=== PATIENT | female | born 1995 | race African-American/Black ===

== ENCOUNTER 2016-10-17 11:10 | Emergency (ER) | payer OTHER ==
[~2016-10-17 11:10] MED LIST: BIOTCAP2 PO; DIPH25CA65 PO; PRLSR20 PO; SULF800T23 PO
[2016-10-17 11:20] VITALS: TEMP 36.5
[2016-10-17] MEDS ORDERED: DOXY-300 PO (11:49)
[2016-10-17] MEDS ORDERED: BIOTCAP2 PO (11:49)
[2016-10-17] MEDS ORDERED: DiphenhydrAMINE HCL 50 MG/ML VIAL IV STA (12:28)
[2016-10-17] MEDS ORDERED: PROCHLORPERAZINE 5 MG/ML 2 ML VIAL IV STA (12:28)
[2016-10-17] MEDS ORDERED: ONDANSETRON INJ 2 MG/ML 2 ML VIAL IV STA (12:28)
[2016-10-17] MEDS ORDERED: SODIUM CHLORIDE 0.9% 1000ML 1,000 ML IV STA (12:28)
[2016-10-17] MEDS ORDERED: KETOROLAC TROMETHAMINE 30 MG/ML VIAL IV STA (12:28)
[2016-10-17] MEDS ORDERED: ACETAMINOPHEN 500 MG TAB PO STA (12:28)
[2016-10-17 13:01] LABS: BASO % 0.3 %; BASO ABS # 0.02 K/uL (0-0.2); COMPLETE YES; IG% 0.1 %; LYMPH % 29.4 %; LYMPH ABS # 2.34 K/uL (1.2-3.4); MEAN CELL VOLUME 78.9 fL (80-100); MEAN CORPUSCULAR HEMOGLOBIN 26.7 pg (25-34); MEAN CORPUSCULAR HGB CONC 33.8 g/dl (32-36); MEAN PLATELET VOLUME 11.5 fL (7.4-10.4); MONO % 5.8 %; NEUT % 63.4 %; PLATELET COUNT 260 K/uL (130-400); RED BLOOD COUNT 4.69 M/uL (4.2-5.4); WHITE BLOOD COUNT 7.97 K/uL (4.8-10.8)
--- NOTE | 2016-10-17 13:20 | DIAGNOSTIC IMAGING REPORT ---
CT OF THE HEAD WITHOUT CONTRAST CLINICAL HISTORY: Headache. COMPARISON STUDY: Head CT August 11, 2016. CT DOSE: 537.48 mGy.cm TECHNIQUE: Helical axial images of the head were obtained without IV contrast. Automated exposure control was utilized for the study. FINDINGS: No acute intracranial hemorrhage, midline shift or mass effect is present. Ventricular system is normal. The basilar cisterns are patent. No extra-axial collections are present. Oneil-white differentiation is maintained. There are no findings to suggest acute dural sinus thrombosis or acute territorial infarct. There are no significant calvarial abnormalities. Visualized portions of the sinuses and mastoid air cells are clear. IMPRESSION: No acute intracranial findings. Electronically signed by: Ryan Marc M.D. 10/17/2016 1:18 PM Dictated Date/Time: 10/17/2016 1:11 PM
[2016-10-17 13:24] LABS: BLOOD UREA NITROGEN 10 mg/dl (7-18); BUN/CREATININE RATIO 12.1 (10-20); CALCIUM 9.3 mg/dl (8.5-10.1); CARBON DIOXIDE 19 mmol/L (21-32); CHLORIDE 108 mmol/L (98-107); CREATININE 0.84 mg/dl (0.60-1.20); GLUCOSE 75 mg/dl (70-99); POTASSIUM 3.6 mmol/L (3.5-5.1); SODIUM 140 mmol/L (136-145)
[2016-10-17 13:34] LABS: PREG INTERNAL NEGATIVE QC NEG CLEAR BACKGROUND; PREG INTERNAL POSITIVE QC POS CONTROL LINE
[2016-10-17 14:00] VITALS: BP 127/80; PULSE 84; O2SAT 100
--- NOTE | 2016-10-17 14:03 | EMERGENCY ROOM VISIT NOTE ---
History Report prepared by Mauricio: Jd Strange Under the Supervision of: Dr. Razia Currie M.D. First contact with patient: 12:20 Chief Complaint: HEADACHE Stated Complaint: HEADACHE History of Present Illness The patient is a 21 year old female who presents to the Emergency Room with complaints of a persistent headache beginning earlier today. She notes she has had headaches before but not like this. She admits to photophobia, and numbness in her left cheek and right arm, but denies having any nausea, vomiting, chest pain or shortness of breath. The patient denies taking control. Source of History: patient Onset: earlier today Position: head Quality: other (headache) Timing: other (persistent) Modifying Factors (Worsening): other (light) Associated Symptoms: + numbness (left cheek, right arm), No SOB, No chest pain, No nausea, No vomiting Note: The patient admits to photophobia. Review of Systems See HPI for pertinent positives & negatives. A total of 10 systems reviewed and were otherwise negative. Past Medical & Surgical Medical Problems: (1) Asthma Family History No family history of thrombolytic diseases Social History Smoking Status: Never Smoker Marital Status: single Housing Status: lives alone Occupation Status: student Current/Historical Medications Scheduled Biotin (Biotin 5000), 5 MG PO DAILY Doxycycline (Monohydrate) (Doxycycline), 100 MG PO DAILY Allergies Coded Allergies: Azithromycin (Verified Allergy, Unknown, diarrhea, 10/17/16) Doxycycline (Verified Allergy, Unknown, hives, 10/17/16) Sulfa Antibiotics (Verified Allergy, Unknown, HIVES, 10/17/16) Topiramate (Verified Allergy, Unknown, memory loss, 10/17/16) Physical Exam Vital Signs Date Time Temp Pulse Resp B/P Pulse Ox O2 Delivery O2 Flow Rate FiO2 10/17/16 14:00 84 18 127/80 100 10/17/16 12:48 61 18 104/63 100 Room Air 10/17/16 11:20 36.5 70 18 135/81 100 Room Air Physical Exam CONSTITUTIONAL: Patient is in moderate painful distress, towel over her eyes. HEENT: No icterus, moist mucous membranes NECK: No meningismus, trachea is midline. CARDIOVASCULAR: Regular rate, normal perfusion RESPIRATORY: Unlabored breathing. Clear to auscultation. GASTROINTESTINAL: Non-tender GENITOURINARY: No flank tenderness MUSCULOSKELETAL: Full range of motion NEUROLOGIC: No acute gross focal deficits. PSYCHIATRIC: Normal affect SKIN: Normal for ethnicity. Medical Decision & Procedures ER Provider Diagnostic Interpretation: CT results as stated below per my review and radiologist interpretation. CT OF THE HEAD WITHOUT CONTRAST FINDINGS: No acute intracranial hemorrhage, midline shift or mass effect is present. Ventricular system is normal. The basilar cisterns are patent. No extra-axial collections are present. Oneil-white differentiation is maintained. There are no findings to suggest acute dural sinus thrombosis or acute territorial infarct. There are no significant calvarial abnormalities. Visualized portions of the sinuses and mastoid air cells are clear. IMPRESSION: No acute intracranial findings. Electronically signed by: Ryan Marc M.D. 10/17/2016 1:18 PM Dictated Date/Time: 10/17/2016 1:11 PM Laboratory Results 10/17/16 12:20 Red Blood Count 4.69, Mean Corpuscular Volume 78.9, Mean Corpuscular Hemoglobin 26.7, Mean Corpuscular Hemoglobin Concent 33.8, Mean Platelet Volume 11.5, Neutrophils (%) (Auto) 63.4, Lymphocytes (%) (Auto) 29.4, Monocytes (%) (Auto) 5.8, Eosinophils (%) (Auto) 1.0, Basophils (%) (Auto) 0.3, Neutrophils # (Auto) 5.06, Lymphocytes # (Auto) 2.34, Monocytes # (Auto) 0.46, Eosinophils # (Auto) 0.08, Basophils # (Auto) 0.02 10/17/16 12:20 Test 10/17/16 12:20 White Blood Count 7.97 K/uL (4.8-10.8) Red Blood Count 4.69 M/uL (4.2-5.4) Hemoglobin 12.5 g/dL (12.0-16.0) Hematocrit 37.0 % (37-47) Mean Corpuscular Volume 78.9 fL (80-100) Mean Corpuscular Hemoglobin 26.7 pg (25-34) Mean Corpuscular Hemoglobin Concent 33.8 g/dl (32-36) Platelet Count 260 K/uL (130-400) Mean Platelet Volume 11.5 fL (7.4-10.4) Neutrophils (%) (Auto) 63.4 % Lymphocytes (%) (Auto) 29.4 % Monocytes (%) (Auto) 5.8 % Eosinophils (%) (Auto) 1.0 % Basophils (%) (Auto) 0.3 % Neutrophils # (Auto) 5.06 K/uL (1.4-6.5) Lymphocytes # (Auto) 2.34 K/uL (1.2-3.4) Monocytes # (Auto) 0.46 K/uL (0.11-0.59) Eosinophils # (Auto) 0.08 K/uL (0-0.5) Basophils # (Auto) 0.02 K/uL (0-0.2) RDW Standard Deviation 40.5 fL (36.4-46.3) RDW Coefficient of Variation 14.3 % (11.5-14.5) Immature Granulocyte % (Auto) 0.1 % Immature Granulocyte # (Auto) 0.01 K/uL (0.00-0.02) Anion Gap 13.0 mmol/L (3-11) Estimated GFR () 115.1 Estimated GFR (Non- 99.4 BUN/Creatinine Ratio 12.1 (10-20) Calcium Level 9.3 mg/dl (8.5-10.1) Human Chorionic Gonadotropin, Qual NEG (NEG) Labs reviewed by ED physician. Medications Administered Medications (Trade) Dose Ordered Sig/Nati Route Start Time Stop Time Status Last Admin Dose Admin Acetaminophen 1000 mg 1,000 mg NOW STAT PO 10/17/16 12:28 10/17/16 12:30 DC 10/17/16 12:40 1,000 MG Sodium Chloride (Nss 1000ml) 1,000 ml @ 0 mls/hr Q0M STAT IV 10/17/16 12:28 10/17/16 12:30 DC 10/17/16 12:40 0 MLS/HR Ketorolac Tromethamine (Toradol Inj) 30 mg NOW STAT IV 10/17/16 12:28 10/17/16 12:30 DC 10/17/16 12:42 30 MG Ondansetron HCl (Zofran Inj) 4 mg NOW STAT IV 10/17/16 12:28 10/17/16 12:30 DC 10/17/16 12:42 4 MG Prochlorperazine Edisylate (Compazine Inj) 10 mg NOW STAT IV 10/17/16 12:28 10/17/16 12:30 DC 10/17/16 12:43 10 MG Diphenhydramine HCl (Benadryl Inj) 25 mg NOW STAT IV 10/17/16 12:28 10/17/16 12:30 DC 10/17/16 12:44 25 MG ED Course 1226: Past medical records reviewed. The patient was evaluated in room C12B. A complete history and physical examination was performed. 1228: Ordered Benadryl Inj 25 mg IV, Compazine Inj 10 mg IV, Zofran Inj 4 mg IV , Toradol Inj 30 mg IV, NSS 1,000 ml @ 0 mls/hr Wide Open IV, and Acetaminophen 1,000 mg PO. 1345: Upon reexamination the patient is doing well. I discussed results and treatment plan with the patient. She verbalizes agreement and understanding. The patient is ready for discharge. Medical Decision Differentials include headache disorder, migraine, and intracranial bleeding. 21-year-old with known history of migraine headache disorder presents to the emergency room with worsening headache consistent with prior episodes. CT head negative. No focal neurologic deficits. She has a primary was advised to follow up this week or return for worsening worrisome symptoms. Impression Primary Impression: Headache Scribe Attestation The scribe's documentation has been prepared under my direction and personally reviewed by me in its entirety. I confirm that the note above accurately reflects all work, treatment, procedures, and medical decision making performed by me. Departure Information Dispostion Home / Self-Care Referrals Domenica Nunez MD (PCP) Forms HOME CARE DOCUMENTATION FORM, IMPORTANT VISIT INFORMATION Patient Instructions [facility], ED Headache Migraine
== END 2016-10-17 14:00 | disposition home or self-care (01) ==
LOC: EDBD 11:10 → C.EDC 11:12
DX: R51 Headache (principal); J45.909 Unspecified asthma, uncomplicated

== ENCOUNTER → 2016-10-25 | Outpatient (CLI) | payer OTHER ==
[~2016-10-25] MED LIST changes: -DIPH25CA65 PO; +DOXY-300 PO; +GADAVIST IV PRN; -PRLSR20 PO; -SULF800T23 PO
--- NOTE | 2016-10-25 20:37 | DIAGNOSTIC IMAGING REPORT ---
MRI OF THE BRAIN WITHOUT AND WITH IV CONTRAST CLINICAL HISTORY: G43.909, R41.3, R20.9, Z82.0 headache COMPARISON STUDY: No previous studies for comparison. TECHNIQUE: Utilizing a 1.5 Kimberly magnet and dedicated coil, multiplanar, multiecho imaging of the brain was performed pre and postcontrast administration. IV administration of 8 mL of Gadavist contrast was uneventful. FINDINGS: Diffusion-weighted images are negative for an acute ischemic focus. Coronal FLAIR images are negative for an focus of increased signal. Periventricular deep white matter regions are unremarkable. Optic radiations are within normal limits. Sella and parasellar regions are unremarkable. Postcontrast images demonstrate a 2 mm focus of enhancement slightly to the left of the parasagittal line in the left frontal lobe region. There is a 6 mm similar focus mid left cerebral hemisphere transaxial image 14. No additional findings seen on any additional sequences. These are most consistent with these is a small vascular blush of small venous angiomas. A six-month follow-up is suggested. IMPRESSION: 1. Essentially negative study of the brain. 2. Very small foci of enhancement left frontal lobe and left paraventricular region suggesting small benign venous angioma. 3. A 3-6 month follow-up is suggested to confirm stability Electronically signed by: Vijay Daley M.D. 10/25/2016 8:36 PM Dictated Date/Time: 10/25/2016 8:29 PM
== END | disposition home or self-care (01) ==
LOC: C.MRI 18:49
PROVIDERS: ATTEND Nurse Practitioner Adult Health
DX: G43.909 Migraine, unspecified, not intractable, without status migrainosus (principal); R41.3 Other amnesia; R20.9 Unspecified disturbances of skin sensation; R90.89 Other abnormal findings on diagnostic imaging of central nervous system; Z82.0 Family history of epilepsy and other diseases of the nervous system